=== PATIENT | male | born 1950 | race African-American/Black ===

== ENCOUNTER 2023-12-05 04:52 | Day surgery (SDC) | payer OTHER ==
[2023-12-04 09:49] VITALS: BMI 23.7
[2023-12-05 08:28] VITALS: RESP 18; TEMP 98.1
[2023-12-05 11:49] VITALS: BP 141/74; PULSE 57
== END 2023-12-05 11:25 | disposition home or self-care (01) ==
LOC: JASU-ENDO 04:52
PROVIDERS: ATTEND Internal Medicine Gastroenterology
PROC: 0DBP8ZX Excision of Rectum, Via Natural or Artificial Opening Endoscopic, Diagnostic (ICD-10-PCS; principal; 2023-12-05 09:15)
DX: Z12.11 Encounter for screening for malignant neoplasm of colon (principal); D12.8 Benign neoplasm of rectum; K57.30 Diverticulosis of large intestine without perforation or abscess without bleeding; K64.8 Other hemorrhoids; K59.89 Other specified functional intestinal disorders
CPT/HCPCS: 88305-TC